=== PATIENT | male | born 1980 | race Caucasian/White ===

== ENCOUNTER 2017-08-18 16:59 | Emergency (ER) | payer OTHER ==
[~2017-08-18] VITALS: Ht 182.9 cm; Wt 162.1 kg
[2017-08-18 17:02] VITALS: TEMP 36.9; Ht 182.9 cm; Wt 162.1 kg
[2017-08-18] MEDS ORDERED: LANS30CA12 PO (17:19)
[2017-08-18] MEDS ORDERED: LOSA50TA6 PO (17:19)
[2017-08-18 17:46] LABS: BASO % 0.3 %; BASO ABS # 0.03 K/uL (0-0.2); COMPLETE YES; HEMATOCRIT 46.5 % (42-52); IG% 0.1 %; LYMPH % 24.3 %; MEAN CELL VOLUME 81.2 fL (80-100); MEAN CORPUSCULAR HEMOGLOBIN 28.3 pg (25-34); MEAN CORPUSCULAR HGB CONC 34.8 g/dl (32-36); MEAN PLATELET VOLUME 9.3 fL (7.4-10.4); MONO % 6.2 %; NEUT % 67.1 %; PLATELET COUNT 250 K/uL (130-400); RED BLOOD COUNT 5.73 M/uL (4.7-6.1); WHITE BLOOD COUNT 11.12 K/uL (4.8-10.8)
[2017-08-18 17:59] LABS: URINE APPEARANCE CLEAR (CLEAR); URINE BILIRUBIN NEG (NEG); URINE COLOR YELLOW; URINE EPITHELIAL CELL AUTO 0-5 /lpf (0-5); URINE NITRITE NEG (NEG); URINE PH 6.5 (4.5-7.5); UROBILINOGEN NEG (NEG); ZZUR CULT IF INDIC CLEAN CATCH YES
[2017-08-18 18:00] LABS: MANUAL MICROSCOPIC REQUIRED? NO; REVIEW REQ? YES
[2017-08-18 18:03] LABS: BUN/CREATININE RATIO 11.5 (10-20); CALCIUM 9.3 mg/dl (8.5-10.1); POTASSIUM 4.2 mmol/L (3.5-5.1)
--- NOTE | 2017-08-18 18:11 | DIAGNOSTIC IMAGING REPORT ---
THORACIC SPINE 3 VIEWS CLINICAL HISTORY: Thoracic back pain. No trauma. FINDINGS: AP, lateral, and swimmer's views of the thoracic spine are obtained. No prior studies are available for comparison at the time of dictation. The skeletal structures are well mineralized. There is no radiographic evidence of fracture or malalignment. Vertebral body height and alignment are maintained throughout the thoracic spine. The transverse processes and pedicles are intact as visualized on the frontal view. The intervertebral disc spaces are maintained. The imaged lung parenchyma appears clear. IMPRESSION: Unremarkable radiographic assessment of the thoracic spine. Electronically signed by: Glenn Washburn M.D. 08/18/2017 6:10 PM Dictated Date/Time: 08/18/2017 6:09 PM
--- NOTE | 2017-08-18 18:11 | DIAGNOSTIC IMAGING REPORT ---
LUMBAR SPINE 3 VIEWS CLINICAL HISTORY: Low back pain. FINDINGS: AP, lateral, and coned-down views of the lumbar spine are obtained. No prior studies are available for comparison at the time of dictation. The skeletal structures are well mineralized. There is no radiographic evidence of fracture or malalignment. Vertebral body height and alignment are maintained. The transverse and spinous processes are intact. The intervertebral disc spaces are well-maintained. The visualized bony pelvis appears intact. There is a nonobstructed abdominal bowel gas pattern. IMPRESSION: Unremarkable radiographic evaluation of the lumbosacral spine. Electronically signed by: Glenn Washburn M.D. 08/18/2017 6:10 PM Dictated Date/Time: 08/18/2017 6:10 PM
[2017-08-18] MEDS ORDERED: CEFTRIAXONE SOD 350MG/ML 1 GM VIAL IM STA (19:11)
[2017-08-18] MEDS ORDERED: DOXYCYCLINE HYCLATE 100 MG CAP PO ONE (19:15)
[2017-08-18] MEDS ORDERED: DOXY100C PO (19:57)
[2017-08-18] MEDS ORDERED: CEPH500C PO (19:57)
[2017-08-18 20:11] VITALS: BP 143/70; PULSE 70; O2SAT 96
--- NOTE | 2017-08-18 23:50 | EMERGENCY ROOM VISIT NOTE ---
History Report prepared by Misael: Irving Sterling Under the Supervision of: Dr. Gavin Yan D.O. First contact with patient: 17:04 Chief Complaint: FLANK PAIN Stated Complaint: LEFT BACK PAIN History of Present Illness The patient is a 37 year old male who presents to the Emergency Room with complaints of intermittent burning to his left lower back beginning a month ago. The patient states he has been receiving injections in his back through pain management for the past year. 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 The patient notes sitting down and lying down alleviates his discomfort. He states standing and movement worsens his symptoms. The patient reports he was working today, and his discomfort was too much. 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 The patient states for the past week, his back tingles when he urinates. He reports he was at [employer] the other day, and his urine was negative, but his STD test is still pending. The patient denies nausea, vomiting, diarrhea, cough, runny nose, chest pain, shortness of breath, weakness or numbness in leg , history of cancer, history of trauma, blood in urine, and an increased urinary frequency. Source of History: patient Onset: month Position: back (left lower) Quality: burning Modifying Factors (Worsening): movement, other (standing) Modifying Factors (Relieving): other (sitting and lying down) Associated Symptoms: No cough, No chest pain, No SOB, No nausea, No vomiting , No diarrhea, No weakness (to the leg), No numbness (to the leg) Note: Associated symptoms: tingling with urination Denies: runny nose, blood in urine, increased urinary frequency Review of Systems See HPI for pertinent positives & negatives. A total of 10 systems reviewed and were otherwise negative. Past Medical & Surgical Medical Problems: (1) HTN (hypertension) (2) Urinary problem Family History Hypertension Social History Smoking Status: Current Every Day Smoker Alcohol Use: occasionally Housing Status: lives with family Occupation Status: employed Current/Historical Medications Scheduled Cephalexin Monohydrate (Keflex), 500 MG PO TID Doxycycline Hyclate (Vibramycin), 100 MG PO BID Lansoprazole (Prevacid), 1 CAP PO DAILY Losartan Potassium (Cozaar), 50 MG PO DAILY Allergies Coded Allergies: No Known Allergies (Unverified , 08/18/17) Physical Exam Vital Signs Date Time Temp Pulse Resp B/P (MAP) Pulse Ox O2 Delivery O2 Flow Rate FiO2 08/18/17 20:11 70 18 143/70 96 08/18/17 19:59 70 18 143/70 96 Room Air 08/18/17 18:36 85 17 151/78 97 Room Air 08/18/17 17:35 93 26 137/70 95 Room Air 08/18/17 17:02 36.9 96 20 117/78 98 Room Air Physical Exam GENERAL: Standing up in room, alert, well appearing, well nourished, no distress , non-toxic EYE EXAM: normal conjunctiva OROPHARYNX: no exudate, no erythema, lips, buccal mucosa, and tongue normal and mucous membranes are moist NECK: supple, no nuchal rigidity, no adenopathy, non-tender LUNGS: Clear to auscultation. Normal chest wall mechanics HEART: no murmurs, S1 normal and S2 normal ABDOMEN: abdomen soft, non-tender, normo-active bowel sounds, no masses, no rebound or guarding. BACK: Back is symmetrical on inspection and there is no deformity. Faint tenderness in the left paraspinal lower thoracic to upper lumbar. SKIN: no rashes and no bruising UPPER EXTREMITIES: upper extremities are grossly normal. LOWER EXTREMITIES: No pitting edema. Flexion and extension of the hip, knee, ankle, and EHL are 5/5 bilaterally. Gross sensation intact. Able to ambulate without difficulty. Achilles and patellar reflexes are 2/4. NEURO EXAM: Normal sensorium Medical Decision & Procedures ER Provider Diagnostic Interpretation: Radiology results as stated below per my review and the radiologist's interpretation: THORACIC SPINE 3 VIEWS CLINICAL HISTORY: Thoracic back pain. No trauma. FINDINGS: AP, lateral, and swimmer's views of the thoracic spine are obtained. No prior studies are available for comparison at the time of dictation. The skeletal structures are well mineralized. There is no radiographic evidence of fracture or malalignment. Vertebral body height and alignment are maintained throughout the thoracic spine. The transverse processes and pedicles are intact as visualized on the frontal view. The intervertebral disc spaces are maintained. The imaged lung parenchyma appears clear. IMPRESSION: Unremarkable radiographic assessment of the thoracic spine. Electronically signed by: Glenn Washburn M.D. 08/18/2017 6:10 PM Dictated Date/Time: 08/18/2017 6:09 PM LUMBAR SPINE 3 VIEWS CLINICAL HISTORY: Low back pain. FINDINGS: AP, lateral, and coned-down views of the lumbar spine are obtained. No prior studies are available for comparison at the time of dictation. The skeletal structures are well mineralized. There is no radiographic evidence of fracture or malalignment. Vertebral body height and alignment are maintained. The transverse and spinous processes are intact. The intervertebral disc spaces are well-maintained. The visualized bony pelvis appears intact. There is a nonobstructed abdominal bowel gas pattern. IMPRESSION: Unremarkable radiographic evaluation of the lumbosacral spine. Electronically signed by: Glenn Washburn M.D. 08/18/2017 6:10 PM Dictated Date/Time: 08/18/2017 6:10 PM Laboratory Results 08/18/17 17:35 Red Blood Count 5.73, Mean Corpuscular Volume 81.2, Mean Corpuscular Hemoglobin 28.3, Mean Corpuscular Hemoglobin Concent 34.8, Mean Platelet Volume 9.3, Neutrophils (%) (Auto) 67.1, Lymphocytes (%) (Auto) 24.3, Monocytes (%) (Auto) 6.2, Eosinophils (%) (Auto) 2.0, Basophils (%) (Auto) 0.3, Neutrophils # (Auto) 7.47, Lymphocytes # (Auto) 2.70, Monocytes # (Auto) 0.69, Eosinophils # (Auto) 0.22, Basophils # (Auto) 0.03 08/18/17 17:35 Test 08/18/17 17:35 White Blood Count 11.12 K/uL (4.8-10.8) Red Blood Count 5.73 M/uL (4.7-6.1) Hemoglobin 16.2 g/dL (14.0-18.0) Hematocrit 46.5 % (42-52) Mean Corpuscular Volume 81.2 fL (80-100) Mean Corpuscular Hemoglobin 28.3 pg (25-34) Mean Corpuscular Hemoglobin Concent 34.8 g/dl (32-36) Platelet Count 250 K/uL (130-400) Mean Platelet Volume 9.3 fL (7.4-10.4) Neutrophils (%) (Auto) 67.1 % Lymphocytes (%) (Auto) 24.3 % Monocytes (%) (Auto) 6.2 % Eosinophils (%) (Auto) 2.0 % Basophils (%) (Auto) 0.3 % Neutrophils # (Auto) 7.47 K/uL (1.4-6.5) Lymphocytes # (Auto) 2.70 K/uL (1.2-3.4) Monocytes # (Auto) 0.69 K/uL (0.11-0.59) Eosinophils # (Auto) 0.22 K/uL (0-0.5) Basophils # (Auto) 0.03 K/uL (0-0.2) RDW Standard Deviation 40.0 fL (36.4-46.3) RDW Coefficient of Variation 13.5 % (11.5-14.5) Immature Granulocyte % (Auto) 0.1 % Immature Granulocyte # (Auto) 0.01 K/uL (0.00-0.02) Urine Color YELLOW Urine Appearance CLEAR (CLEAR) Urine pH 6.5 (4.5-7.5) Urine Specific [place] 1.020 (1.000-1.030) Urine Protein NEG (NEG) Urine Glucose (UA) NEG (NEG) Urine Ketones NEG (NEG) Urine Occult Blood NEG (NEG) Urine Nitrite NEG (NEG) Urine Bilirubin NEG (NEG) Urine Urobilinogen NEG (NEG) Urine Leukocyte Esterase SMALL (NEG) Urine WBC (Auto) 10-30 /hpf (0-5) Urine RBC (Auto) 0-4 /hpf (0-4) Urine Hyaline Casts (Auto) 0 /lpf (0-5) Urine Epithelial Cells (Auto) 0-5 /lpf (0-5) Urine Bacteria (Auto) 1+ (NEG) Anion Gap 6.0 mmol/L (3-11) Est Creatinine Clear Calc Drug Dose 162.5 ml/min Estimated GFR () 112.5 Estimated GFR (Non- 97.1 BUN/Creatinine Ratio 11.5 (10-20) Calcium Level 9.3 mg/dl (8.5-10.1) Total Bilirubin 0.5 mg/dl (0.2-1) Direct Bilirubin 0.2 mg/dl (0-0.2) Aspartate Amino Transf (AST/SGOT) 19 U/L (15-37) Alanine Aminotransferase (ALT/SGPT) 37 U/L (12-78) Alkaline Phosphatase 92 U/L (45-117) Total Protein 8.2 gm/dl (6.4-8.2) Albumin 4.3 gm/dl (3.4-5.0) Lipase 168 U/L (73-393) Laboratory results per my review. Medications Administered Medications (Trade) Dose Ordered Sig/Lupe Route Start Time Stop Time Status Last Admin Dose Admin Ceftriaxone Sodium (Rocephin Im) 250 mg NOW STAT IM 08/18/17 19:11 08/18/17 19:13 DC 08/18/17 19:40 250 MG Doxycycline Hyclate (Vibramycin Cap) 100 mg ONE ONCE PO 08/18/17 19:15 08/18/17 19:16 DC 08/18/17 19:40 100 MG ED Course ED COURSE: Vital signs were reviewed and showed situational hypertension. The patients medical record was reviewed The above diagnostic studies were performed and reviewed. ED treatments and interventions as stated above. 1705: The patient was evaluated in room C12B. A complete history and physical examination was performed. 1910: Ordered Rocephin Im 250mg IM 1914: Ordered Doxycycline Hyclate 100mg PO 1918: I reevaluated the patient and updated him. He is feeling better. 2001: Upon reevaluation, the patient is resting comfortably.I discussed my findings with the patient and he understands and agrees with the treatment plan. Based on the patients age, coexisting illnesses, exam and lab findings the decision to treat as an outpatient was made. The patient remained stable while under my care. The patient appeared well at the time of discharge. Medical Decision Differential diagnoses includes but is not limited to lumbar radiculopathy, muscle strain, facture, cauda equina, mass, and disc herniation. Patient is a 37-year-old male who presents to ER for left lower back pain associated with dysuria. No CVA tenderness. Back pain appears to be musculoskeletal as it is palpable and worsens with physicians. It completely resolves with sitting. UA does suggested a UTI. I do not believe he has polyp. Afebrile. Extremely well-appearing. No leukocytosis. Patient is sexually active. Patient was covered with Rocephin and doxycycline. He was discharged with Keflex and Doxy. No blood in urine to suggest stone. He is given Keflex to cover for UTIs and Doxy for STD. Patient was updated regards to his findings. He was discharged to follow-up with PCP. Discussed with Pt concerning signs and symptoms to watch out for. Pt was instructed to follow up with their PCP and discussed with the patient their option to return to the ED at anytime for persistent or worsening symptoms. The appropriate anticipatory guidance and out-patient management, including indications for return to the emergency department, were explained at length to the patient and understood. Medication Reconcilliation Current Medication List: was personally reviewed by me Blood Pressure Screening Patient's blood pressure: Elevated blood pressure Blood pressure disposition: Elevated BP felt to be situational Impression Primary Impression: Urinary tract infection Additional Impression: Back pain Scribe Attestation The scribe's documentation has been prepared under my direction and personally reviewed by me in its entirety. I confirm that the note above accurately reflects all work, treatment, procedures, and medical decision making performed by me. Departure Information Dispostion Home / Self-Care Prescriptions Cephalexin Monohydrate (Keflex) 500 Mg Cap 500 MG PO TID for 7 Days, CAP Prov: Gavin Yan, DO 08/18/17 Doxycycline Hyclate (VIBRAMYCIN) 100 Mg Cap 100 MG PO BID for 10 Days, CAP Prov: Gavin Yan, DO 08/18/17 Referrals Zeyad Ashley M.D. Forms HOME CARE DOCUMENTATION FORM, IMPORTANT VISIT INFORMATION Patient Instructions ED UTI Cystitis Male, My [facility] Additional Instructions Please follow up with your primary care doctor with in the next 24 hours. Any worsening of your symptoms, please return to the ED immediately. This includes any fevers greater than 100.4, worsening pain, chest pain, shortness breath, persistent nausea, vomiting, unable to eat or drink, or any other concerning signs or symptoms from your standpoint. Please take Tylenol or Motrin as needed for pain. Problem Qualifiers Primary Impression: Urinary tract infection Urinary tract infection type: acute cystitis Hematuria presence: without hematuria Qualified Codes: N30.00 - Acute cystitis without hematuria Additional Impression: Back pain Back pain location: low back pain Chronicity: acute Back pain laterality: left Sciatica presence: without sciatica Qualified Codes: M54.5 - Low back pain
== END 2017-08-18 20:05 | disposition home or self-care (01) ==
LOC: C.EDB 17:00 → C.EDC 20:05
DX: N30.00 Acute cystitis without hematuria (principal); M54.5 Low back pain; I10 Essential (primary) hypertension; F17.200 Nicotine dependence, unspecified, uncomplicated; Z82.49 Family history of ischemic heart disease and other diseases of the circulatory system; Z79.899 Other long term (current) drug therapy